=== PATIENT | female | born 1990 | race African-American/Black ===

== ENCOUNTER 2021-07-29 23:35 | Emergency (ER) | payer MEDICAID ==
[~2021-07-29] VITALS: Ht 165.1 cm; Wt 71.0 kg
[2021-07-30 00:49] LABS: HEMATOCRIT 36.8 % (36.0-48.0); MEAN CORPUSCULAR HEMOGLOBIN 25.7 pg (28.0-32.0); MEAN CORPUSCULAR VOLUME 78.9 fL (81.0-99.0); PLATELET 189 x1000/uL (130-400); RED BLOOD CELL COUNT 4.67 mill/uL (4.2-5.4); RED CELL DISTRIBUTION WIDTH 12.8 % (11.6-14.6)
[2021-07-30 00:54] LABS: CHLORIDE 112 mEq/L (98-107)
[2021-07-30] MEDS ORDERED: HYDROCODONE/ACETAMINOPHEN 10/325MG TABLET PO ONE (01:30)
[2021-07-30 01:48] VITALS: BP 144/65
== END 2021-07-30 01:50 | disposition home or self-care (01) ==
LOC: ER 23:35
DX: N93.9 Abnormal uterine and vaginal bleeding, unspecified (principal); Z98.890 Other specified postprocedural states
CPT/HCPCS: 36415; 80053; 85027; 86850; 86900; 93005; 99284